=== PATIENT | female | born 1970 | race American Indian/Alaskan Native ===

== ENCOUNTER 2016-10-06 15:21 | Emergency (ER) | payer OTHER ==
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
[2016-10-06] MEDS ORDERED: ZESTRIL PO ONE (21:25)
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
[2016-10-06 22:32] VITALS: BP 160/92
[2016-10-06] MEDS ORDERED: PERCOCET 5/325 PO ONE (22:32)
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
[2016-10-06] MEDS ORDERED: MOTRIN PO ONE (22:58)
== END 2016-10-06 23:24 | disposition home or self-care (01) ==
LOC: ED 15:21
DX: S09.90XA Unspecified injury of head, initial encounter (principal); G44.319 Acute post-traumatic headache, not intractable; M54.5 Low back pain; M79.1 Myalgia; M25.512 Pain in left shoulder; I10 Essential (primary) hypertension; M79.622 Pain in left upper arm; G43.909 Migraine, unspecified, not intractable, without status migrainosus; V49.9XXA Car occupant (driver) (passenger) injured in unspecified traffic accident, initial encounter; Y93.89 Activity, other specified; Y99.8 Other external cause status; Y92.89 Other specified places as the place of occurrence of the external cause
CPT/HCPCS: 70450; 72125; 72131